=== PATIENT | male | born 1995 | race Two or more races ===

== ENCOUNTER 2022-09-10 15:47 | Emergency (ER) | payer SELFPAY ==
[~2022-09-10] VITALS: Ht 170.2 cm; Wt 63.6 kg
[2022-09-10] MEDS ORDERED: SODIUM CHLORIDE 0.9% 1,000 ML IV ONE (16:15)
[2022-09-10] MEDS ORDERED: LORazepam 2MG/ML-1ML VIAL IV ONE (16:15)
[2022-09-10 16:36] LABS: Basophils # (auto) 0 10 ^3/uL (0-0.2); Basophils % (auto) 0.3 % (0.0-2.0); Eosinophils # (auto) 0 10 ^3/uL (0-0.8); Hematocrit 44.2 % (41.0-53.0); Hemoglobin 14.6 g/dL (13.5-17.5); Lymphocytes # (auto) 1.2 10 ^3/uL (0.4-5.4); Lymphocytes % (auto) 10.9 % (10.0-50.0); Mean Corpuscular Hemoglobin 28.7 pg (28.0-32.0); Monocytes # (auto) 0.9 10 ^3/uL (0-1.3); Monocytes % (auto) 8.3 % (0.0-12.0); Neutrophils # (auto) 9.1 10 ^3/uL (1.6-8.6); Neutrophils % (auto) 80.5 % (37.0-80.0); Nucleated Red Blood Cells % 0.1 %; Red Blood Cells 5.08 10^6/uL (4.5-5.90); Red Cell Distribution Width 14.5 % (11.8-14.3); White Blood Cell 11.3 10^3/uL (4.4-10.8)
[2022-09-10 16:57] LABS: Albumin 4.6 g/dL (3.4-5.0); Anion Gap 19 (5-15); Blood Alcohol < 3.0 mg/dL (<10); Blood Urea Nitrogen 7 mg/dL (7-18); Calcium 10.9 mg/dL (8.5-10.1); Carbon Dioxide 20 mmol/L (21-32); Chloride 94 mmol/L (98-107); Glucose 151 mg/dL (74-106); Potassium 3.4 mmol/L (3.5-5.1); Sodium 133 mmol/L (136-145)
[2022-09-10 17:01] LABS: Alanine Aminotransferase 45 U/L (16-61); Alkaline Phosphatase 90 U/L (45-117); Aspartate Aminotransferase 44 U/L (15-37); BUN/Creatinine Ratio 5.6 (10.0-20.0); GFR African American 92 mL/min; GFR Non-African American 76 mL/min; Total Protein 8.4 g/dL (6.4-8.2)
[2022-09-10] MEDS ORDERED: IBUP-1454 PO (21:03)
[2022-09-10] MEDS ORDERED: KETOROLAC TROMETH 60MG/2ML VIAL IM ONE (21:15)
[2022-09-10 21:43] VITALS: BP 135/66
== END 2022-09-10 21:50 | disposition home or self-care (01) ==
LOC: ER 15:47
DX: F15.10 Other stimulant abuse, uncomplicated (principal); F14.10 Cocaine abuse, uncomplicated; R07.89 Other chest pain; R06.02 Shortness of breath; F17.210 Nicotine dependence, cigarettes, uncomplicated
CPT/HCPCS: 36415; 71045; 80053; 80320; 84484; 85025; 93005; 96360; 96372; 99285; J1885; J7030

== ENCOUNTER 2023-12-03 17:39 | Emergency (ER) | payer MEDICAID ==
[~2023-12-03] VITALS: Ht 167.6 cm; Wt 55.7 kg
[~2023-12-03 17:39] MED LIST: IBUP-1454 PO
[2023-12-03] MEDS: THIAMINE HCL 100 MG TAB PO ONE (18:00)
[2023-12-03] MEDS: SODIUM CHLORIDE 0.9% 1,000 ML IV ONE ×2 (18:58→20:10)
[2023-12-03 19:13] LABS: Basophils # (auto) 0 10 ^3/uL (0-0.2); Basophils % (auto) 0.5 % (0.0-2.0); Eosinophils # (auto) 0 10 ^3/uL (0-0.8); Eosinophils % (auto) 0.1 % (0.0-7.0); Hematocrit 45.9 % (41.0-53.0); Hemoglobin 15.6 g/dL (13.5-17.5); Lymphocytes # (auto) 1.1 10 ^3/uL (0.4-5.4); Lymphocytes % (auto) 12.9 % (10.0-50.0); Mean Corpuscular Hemoglobin 30.8 pg (28.0-32.0); Mean Corpuscular Hgb Conc. 34.1 g/dL (32.0-36.0); Mean Corpuscular Volume 90.5 fL (80.0-100.0); Monocytes # (auto) 0.3 10 ^3/uL (0-1.3); Monocytes % (auto) 3.5 % (0.0-12.0); Neutrophils # (auto) 7.1 10 ^3/uL (1.6-8.6); Platelet Count (auto) 251 10^3/uL (140-450); Red Blood Cells 5.07 10^6/uL (4.5-5.90); Red Cell Distribution Width 13.6 % (11.8-14.3); White Blood Cell 8.5 10^3/uL (4.4-10.8)
[2023-12-03] MEDS: LORazepam 2MG/ML-1ML VIAL IV ONE (19:26)
[2023-12-03] MEDS: ONDANSETRON HCL 4 MG/2 ML VIAL IV ONE (19:31)
[2023-12-03 19:38] LABS: Alanine Aminotransferase 63 U/L (7-40); Albumin 5.2 g/dL (3.2-4.8); Alkaline Phosphatase 106 U/L (46-116); Anion Gap 15 (5-15); Aspartate Aminotransferase 63 U/L (13-40); BUN/Creatinine Ratio 6.3 (10.0-20.0); Blood Alcohol 3.2 mg/dL (<10); Blood Urea Nitrogen 5 mg/dL (9-23); Calcium 9.8 mg/dL (8.7-10.4); Carbon Dioxide 23 mmol/L (20-31); Chloride 99 mmol/L (98-107); Glucose 119 mg/dL (74-106); Magnesium 1.5 mg/dL (1.6-2.6); Potassium 3.3 mmol/L (3.5-5.1); Sodium 137 mmol/L (136-145)
[2023-12-03 19:39] LABS: Bilirubin, Total 1.4 mg/dL (0.2-1.0); Total Protein 7.9 g/dL (5.7-8.2)
[2023-12-03 19:50] LABS: Lactic Acid w/Reflex 5.4 mmol/L (0.4-2.0)
[2023-12-03 20:05] LABS: Urine Bacteria None Seen /hpf (None Seen)
[2023-12-03 20:43] LABS: Amphetamine Screen, Urine Neg (NEGATIVE); Barbiturate Scree,Urine Neg (NEGATIVE); Benzodiazephine Screen, Urine Neg (NEGATIVE); Cannabinoid Screen, Urine Pos (NEGATIVE); Cocaine Screen, Urine Pos (NEGATIVE); Opiate Scree,Urine Neg (NEGATIVE); Phencyclidine Screen, Urine Neg (NEGATIVE)
[2023-12-03 20:48] LABS: Urine Blood Negative /uL (Negative); Urine Clarity Clear (Clear); Urine Color Yellow (Yellow); Urine Mucus FEW (None Seen); Urine Protein, UAD 1+ (Negative); Urine Specific Gravity 1.021 (1.001-1.035); Urine Urobilinogen Normal (Negative); Urine WBC 1 /hpf (0 - 3); Urine pH 7.5 (5.0-9.0)
[2023-12-03 21:11] VITALS: TEMP 99.2
[2023-12-03] MEDS: MAGNESIUM SULFATE 1GM/100ML 100 ML IV ONE (21:25)
[2023-12-03 21:29] LABS: Lipase 33 U/L (12-53)
[2023-12-03 21:52] VITALS: PULSE 91; RESP 19; O2SAT 96
[2023-12-03] MEDS: PANTOPRAZOLE 40 MG/10 ML VIAL INJ IV ONE (23:52)
[2023-12-04 01:09] VITALS: BP 123/71; PULSE 78; RESP 14; O2SAT 98
== END 2023-12-03 23:39 | disposition home or self-care (01) ==
LOC: ER 17:39
DX: E86.0 Dehydration (principal); E83.42 Hypomagnesemia; F10.10 Alcohol abuse, uncomplicated; F12.10 Cannabis abuse, uncomplicated; F14.10 Cocaine abuse, uncomplicated; F17.210 Nicotine dependence, cigarettes, uncomplicated; Z79.899 Other long term (current) drug therapy
CPT/HCPCS: 36415; 80053; 80307; 80320; 81001; 83605; 83690; 83735; 84484; 85025; 93005; 96361; 96365; 96375; 99285; J2060; J2405; J2470; J3475; J7030

== ENCOUNTER 2024-02-25 05:58 | Emergency (ER) | payer SELFPAY ==
[~2024-02-25] VITALS: Ht 165.1 cm; Wt 62.3 kg
--- NOTE | 2024-02-25 06:49 | ED.PDOC ---
GI ASSESSMENT HPI Comments 28 y.o male presents to the ED for a chief complaint of abdominal pain associated with nausea, vomiting and constipation that presents a couple days ago. Patient has a history of ETOH abuse, states he drinks a mix of beer and Vodka daily with last drink being yesterday. Patient presents now with new onset of tremors as well. He denies chest pain, SOB, fever or chills. No other medical history reported. Chief Complaint: ETOH Time Seen by MD: 06:35 Primary Care Provider: unknown Reviewed Notes: Nurses Notes, Medications, Allergies Allergies: Coded Allergies: NO KNOWN ALLERGIES (Unverified , 09/10/22) Home Meds Active Scripts Ibuprofen (Ibuprofen) 600 Mg Tab, 1 TAB PO Q6HP PRN, #20 TAB Prov:ANITA TERAN [place] PAC 09/10/22 Information Source: Patient Mode of Arrival: Ambulatory Timing: Days Duration: Since onset Quality: Sharp Vomitus: Bilious Stool: Empty Severity: Moderate Recent: None Recent Hx of: None Pain Location: Diffuse Modifying Factors: Nothing Associated sign and symptoms: Nausea, Constipation, Abdominal Pain Past Medical History PAST MEDICAL HISTORY: Denies Surgical History: Denies all surgeries Family History Family History: Reviewed,noncontributory to illness, No family hx of Cancer, No family hx of DM, No family hx of Heart chante, No family hx of HTN, No family hx ofKidney chante, No family hx of Liver chante, No family hx of Lung chante, No family hx of Stroke Social History Smoker: Cigarettes Alcohol: Heavy Drugs: Cocaine, Methamphetamine Constitutional: denies: chills, diaphoresis, fatigue, fever, malaise, sweats, weakness, others EENTM: denies: blurred vision, double vision, ear bleeding, ear discharge, ear drainage, ear pain, ear ringing, eye pain, eye redness, hearing loss, mouth pain, mouth swelling, nasal discharge, nose bleeding, nose congestion, nose pain, photophobia, tearing, throat pain, throat swelling, voice changes, others Respiratory: denies: cough, hemoptysis, orthopnea, SOB at rest, shortness of breath, SOB with excertion, stridor, wheezing, others Cardiovascular: denies: chest pain, dizzy spells, diaphoresis, Dyspnea on exertion, edema, irregular heart beat, left arm pain, lightheadedness, palpitations, PND, syncope, others Gastrointestinal: reports: abdominal pain, constipated, nausea; denies: abdomen distended, blood streaked bowels, diarrhea, dysphagia, difficulty swallowing, hematemesis, melena, poor appetite, poor fluid intake, rectal bleeding, rectal pain, vomiting, others Genitourinary: denies: burning, dysuria, flank pain, frequency, hematuria, incontinence, penile discharge, penile sore, pain, testicle pain, testicle swelling, urgency, others Neurological: denies: dizziness, fainting, headache, left sided numbness, left sided weakness, numbness, paresthesia, pre-existing deficit, right sided numbness, right sided weakness, seizure, speech problems, tingling, tremors, weakness, others Musculoskeletal: denies: back pain, gout, joint pain, joint swelling, muscle pain, muscle stiffness, neck pain, others Integumetry: denies: bruises, change in color, change in hair/nails, dryness, laceration, lesions, lumps, rash, wounds, others Allergic/Immunocompromised: denies: Difficulty Healing, Frequent Infections, Hives, Itching, others Hematologic/Lymphatic: denies: anemia, blood clots, easy bleeding, easy bruising, swollen glands, others Endocrine: denies: excessive hunger, excessive sweating, excessive thirst, excessive urination, flushing, intolerance to cold, intolerance to heat, unexplained weight gain, unexplained weight loss, others Psychiatric: denies: anxiety, bipolar disorder, depression, hopeless, panic disorder, schizophrenia, sleepless, suicidal, others All Other Systems: Reviewed and Negative Physical Exam General Appearance: No Apparent Distress, Normal HEENT: Normal ENT Inspection, Pharynx Normal, TMs Normal Neck: Full Range of Motion, Non-Tender, Normal, Normal Inspection Respiratory: Chest Non-Tender, Lungs Clear, No Accessory Muscle Use, No Respiratory Distress, Normal Breath Sounds Cardiovascular: No Edema, No JVD, No Murmur, No Gallop, Normal Peripheral Pulses, Regular Rate/Rhythm Breast Exam: Deferred Gastrointestinal: No Organomegaly, Non Tender, No Pulsatile Mass, Normal Bowel Sounds, Soft Genitalia: Deferred Pelvic: Deferred Rectal: Deferred Extremities: No calf tenderness, Normal capillary refill, Normal inspection, Normal range of motion, Non-tender, No pedal edema Musculoskeletal : Apperance: Normal Neurologic: Alert, tactical intelligence officer II-XII nml as Tested, No Motor Deficits, Normal Affect, Normal Mood, No Sensory Deficits Cerebellar Function: Normal Reflexes: Normal Skin: Dry, Normal Color, Warm Lymphatic: No Adenopathy Was a procedure done? Was a procedure done?: No GI differential Dx Differential Diagnosis: Gastroenteritis, Hepatitis, Inflammatory BD, Dehydration, Drug toxicity, Electrolyte Imbalance, Viral, Malnutrition X-Ray, Labs, Meds, VS Vital Signs Date Time Temp Pulse Resp B/P (MAP) Pulse Ox O2 Delivery O2 Flow Rate FiO2 02/25/24 06:55 107 16 97 Room Air* 0 21 02/25/24 06:54 98.8 107 22 131/85 (100) 97 98.8 02/25/24 06:11 97.9 127 20 134/88 (103) 99 Lab Test 02/25/24 06:50 02/25/24 06:20 02/25/24 06:19 Range/Units White Blood Count 5.7 4.4-10.8 10^3/uL Red Blood Count 5.11 4.5-5.90 10^6/uL Hemoglobin 15.2 13.5-17.5 g/dL Hematocrit 45.4 41.0-53.0 % Mean Corpuscular Volume 88.8 80.0-100.0 fL Mean Corpuscular Hemoglobin 29.7 28.0-32.0 pg Mean Corpuscular Hemoglobin Concent 33.4 32.0-36.0 g/dL Red Cell Distribution Width 13.9 11.8-14.3 % Platelet Count 177 140-450 10^3/uL Mean Platelet Volume 8.3 6.9-10.8 fL Neutrophils (%) (Auto) 82.2 H 37.0-80.0 % Lymphocytes (%) (Auto) 13.4 10.0-50.0 % Monocytes (%) (Auto) 4.1 0.0-12.0 % Eosinophils (%) (Auto) 0.0 0.0-7.0 % Basophils (%) (Auto) 0.3 0.0-2.0 % Neutrophils # (Auto) 4.7 1.6-8.6 10 ^3/uL Lymphocytes # (Auto) 0.8 0.4-5.4 10 ^3/uL Monocytes # (Auto) 0.2 0-1.3 10 ^3/uL Eosinophils # (Auto) 0 0-0.8 10 ^3/uL Basophils # (Auto) 0 0-0.2 10 ^3/uL Nucleated Red Blood Cells 0.0 % Sodium Level 137 136-145 mmol/L Potassium Level 3.7 3.5-5.1 mmol/L Chloride Level 98 98-107 mmol/L Carbon Dioxide Level 26 20-31 mmol/L Anion Gap 13 5-15 Blood Urea Nitrogen 5 L 9-23 mg/dL Creatinine 0.84 0.700-1.30 mg/dL Glomerular Filtration Rate Calc 123 >90 mL/min BUN/Creatinine Ratio 6.0 L 10.0-20.0 Serum Glucose 111 H 74-106 mg/dL Calcium Level 10.8 H 8.7-10.4 mg/dL Total Bilirubin 1.2 H 0.2-1.0 mg/dL Aspartate Amino Transferase (AST) 51 H 13-40 U/L Alanine Aminotransferase (ALT) 42 H 7-40 U/L Alkaline Phosphatase 91 46-116 U/L Total Protein 8.2 5.7-8.2 g/dL Albumin 5.4 H 3.2-4.8 g/dL Amylase Level 91 30-118 U/L Lipase 36 12-53 U/L Plasma/Serum Blood Alcohol 8.8 <10 mg/dL Urine Color Yellow Yellow Urine Clarity Clear Clear Urine pH 8.0 5.0-9.0 Urine Specific [place] 1.022 1.001-1.035 Urine Protein 1+ H Negative Urine Ketones 4+ H Negative Urine Blood Negative Negative /uL Urine Nitrite Negative Negative Urine Bilirubin Negative Negative Urine Urobilinogen Normal Negative mg/dL Urine Leukocyte Esterase Negative Negative /uL Urine RBC 5 0 - 3 /hpf Urine WBC 1 0 - 3 /hpf Urine Squamous Epithelial Cells None seen <5 /hpf Urine Bacteria None seen None Seen /hpf Urine Mucus Few None Seen Urine Glucose Normal Normal mg/dL Urine Opiates Screen Neg NEGATIVE Urine Fentanyl Screen Neg NEGATIVE Urine Barbiturates Screen Neg NEGATIVE Urine Phencyclidine Screen Neg NEGATIVE Urine Amphetamines Screen Neg NEGATIVE Urine Benzodiazepines Screen Neg NEGATIVE Urine Cocaine Screen Pos NEGATIVE Urine Cannabinoids Screen Pos NEGATIVE POC Glucose 119 H 70-106 mg/dl Current Medications Medications (Trade) Dose Ordered Sig/Ann Route Start Time Stop Time Status Last Admin Al Hydrox/Mg Hydrox/Simethicone (Maalox Plus) 30 ml ONCE ONCE PO 02/25/24 06:45 02/25/24 06:46 DC 02/25/24 06:50 Ondansetron HCl (Zofran Po) 4 mg ONCE ONCE PO 02/25/24 06:45 02/25/24 06:46 DC 02/25/24 06:50 X-Ray, Labs, Meds, VS Comment This 28-year-old male presents secondary to epigastric pain after drinking alcohol on empty stomach. He was given GI cocktail with improvement of his symptoms. Differential diagnoses considered include pancreatitis. However, the patient had a normal lipase, amylase. Secondary to his history of abdominal after drinking alcohol heavily stomach, the resident symptoms after having GI cocktail, believe the patient has alcoholic gastritis. Time of 1ST Reevaluation: 06:38 Reevaluation 1ST: Unchanged Patient Education/Counseling: Diagnosis, Treatment, Prognosis Family Education/Counseling: No Family Present Additional Information The following tests were ordered, and results were reviewed by me: LAB I reviewed and agreed with the following test results read by other providers: (X-Ray, CT, US) I discussed treatment and results with medical personnel and patient Departure 1 Departure Time of Disposition: 08:09 Impression: Primary Impression: Alcohol abuse Additional Impression: Alcoholic gastritis Disposition: 01 HOME / SELF CARE / HOMELESS Condition: Good Discharged With: Self Critical Care Note Critical Care Time?: No Stability Stability form required: No I personally scribed for JOHN FUENTES MD ([email or web address]) on 02/25/24 at 06:49. Electronically submitted by Roselia Mendosa ([facility]). JOHN FUENTES MD Feb 25, 2024 06:49
[2024-02-25] MEDS: MAALOX PLUS or MAALOX 30 ML PO ONE (06:50)
[2024-02-25] MEDS: ONDANSETRON ODT 4 MG TAB PO ONE (06:50)
[2024-02-25 06:55] VITALS: PULSE 107; RESP 16; O2SAT 97
[2024-02-25 07:04] LABS: Urine Bacteria None Seen /hpf (None Seen)
[2024-02-25 07:08] LABS: Basophils # (auto) 0 10 ^3/uL (0-0.2); Basophils % (auto) 0.3 % (0.0-2.0); Eosinophils # (auto) 0 10 ^3/uL (0-0.8); Hematocrit 45.4 % (41.0-53.0); Hemoglobin 15.2 g/dL (13.5-17.5); Lymphocytes # (auto) 0.8 10 ^3/uL (0.4-5.4); Lymphocytes % (auto) 13.4 % (10.0-50.0); Mean Corpuscular Hemoglobin 29.7 pg (28.0-32.0); Mean Corpuscular Hgb Conc. 33.4 g/dL (32.0-36.0); Mean Corpuscular Volume 88.8 fL (80.0-100.0); Monocytes # (auto) 0.2 10 ^3/uL (0-1.3); Monocytes % (auto) 4.1 % (0.0-12.0); Neutrophils # (auto) 4.7 10 ^3/uL (1.6-8.6); Neutrophils % (auto) 82.2 % (37.0-80.0); Platelet Count (auto) 177 10^3/uL (140-450); Red Blood Cells 5.11 10^6/uL (4.5-5.90); Red Cell Distribution Width 13.9 % (11.8-14.3); White Blood Cell 5.7 10^3/uL (4.4-10.8)
[2024-02-25 07:23] LABS: Amphetamine Screen, Urine Neg (NEGATIVE)
[2024-02-25 07:25] LABS: Alanine Aminotransferase 42 U/L (7-40); Albumin 5.4 g/dL (3.2-4.8); Alkaline Phosphatase 91 U/L (46-116); Amylase 91 U/L (30-118); Anion Gap 13 (5-15); Aspartate Aminotransferase 51 U/L (13-40); Blood Alcohol 8.8 mg/dL (<10); Blood Urea Nitrogen 5 mg/dL (9-23); Calcium 10.8 mg/dL (8.7-10.4); Carbon Dioxide 26 mmol/L (20-31); Chloride 98 mmol/L (98-107); Glucose 111 mg/dL (74-106); Potassium 3.7 mmol/L (3.5-5.1); Sodium 137 mmol/L (136-145)
[2024-02-25 07:25] LABS: Barbiturate Scree,Urine Neg (NEGATIVE); Benzodiazephine Screen, Urine Neg (NEGATIVE); Cannabinoid Screen, Urine Pos (NEGATIVE); Cocaine Screen, Urine Pos (NEGATIVE); Opiate Scree,Urine Neg (NEGATIVE); Phencyclidine Screen, Urine Neg (NEGATIVE)
[2024-02-25 07:28] LABS: Urine Blood Negative /uL (Negative); Urine Clarity Clear (Clear); Urine Color Yellow (Yellow); Urine Mucus FEW (None Seen); Urine Protein, UAD 1+ (Negative); Urine Specific Gravity 1.022 (1.001-1.035); Urine Urobilinogen Normal (Negative); Urine WBC 1 /hpf (0 - 3)
[2024-02-25 07:28] LABS: Bilirubin, Total 1.2 mg/dL (0.2-1.0); Total Protein 8.2 g/dL (5.7-8.2)
[2024-02-25 07:38] LABS: Lipase 36 U/L (12-53)
[2024-02-25 08:17] VITALS: BP 139/90; PULSE 107; RESP 20; TEMP 98.2; O2SAT 97
== END 2024-02-25 08:23 | disposition home or self-care (01) ==
LOC: ER 05:58
DX: F10.10 Alcohol abuse, uncomplicated (principal); K29.20 Alcoholic gastritis without bleeding; F17.210 Nicotine dependence, cigarettes, uncomplicated; F12.90 Cannabis use, unspecified, uncomplicated; F15.90 Other stimulant use, unspecified, uncomplicated; Z79.899 Other long term (current) drug therapy
CPT/HCPCS: 36415; 80053; 80307; 80320; 81001; 82150; 82962; 83690; 85025; 99283; Q0162